=== PATIENT | female | born 1990 | race Caucasian/White ===

== ENCOUNTER 2017-07-21 02:49 | Emergency (ER) | payer OTHER ==
[~2017-07-21] VITALS: Ht 154.9 cm; Wt 106.8 kg
[2017-07-21 02:58] VITALS: Ht 154.9 cm; Wt 106.8 kg
[2017-07-21] MEDS ORDERED: IBUPROFEN 600 MG TAB PO ONE (05:00)
[2017-07-21] MEDS ORDERED: IBUP-1542 PO (05:49)
[2017-07-21] MEDS ORDERED: CEPH-443 PO (05:49)
--- NOTE | 2017-07-21 05:52 | ERD ---
ER Documentation Chief Complaint Chief Complaint R big toe swelling yesterday, pain now HPI Patient is a 26-year-old female presents ED for concerns of right big toe pain which started 2 days ago. Patient states that she noticed redness and swelling surrounding the tip of her right toe. Patient denies any trauma or falls. Patient states she has pain with ambulating. Patient denies any increase intake in salty foods, meats, alcohol use over the holiday weekend.. Patient denies any insect bites. Patient denies any fevers or chills. Patient denies any previous injuries to the affected extremity. ROS All systems reviewed and are negative except as per history of present illness. Medications Home Meds Active Scripts Cephalexin* (Keflex*) 500 Mg Capsule, 500 MG PO TID for 7 Days, CAP Prov:KATARINA PARKS PA-C 07/21/17 Ibuprofen* (Motrin*) 600 Mg Tab, 600 MG PO Q6, #20 TAB Prov:KATARINA PARKS PA-C 07/21/17 Allergies Allergies: Coded Allergies: No Known Allergies (Verified Allergy, Mild, 09/07/14) PMhx/Soc History of Surgery: No Anesthesia Reaction: No Hx Neurological Disorder: No Hx Respiratory Disorders: Yes (ASTHMA) Hx Cardiac Disorders: No Hx Psychiatric Problems: No Hx Miscellaneous Medical Probl: No Hx Alcohol Use: No Hx Substance Use: No Hx Tobacco Use: No Smoking Status: Never smoker Physical Exam Vitals Vital Signs Date Time Temp Pulse Resp B/P Pulse Ox O2 Delivery O2 Flow Rate FiO2 07/21/17 02:58 98.9 98 18 111/64 97 Physical Exam GENERAL: Well-developed, well-nourished female. Appears in no acute distress. HEAD: Normocephalic, atraumatic. EYES: Pupils are equally reactive bilaterally. EOMs grossly intact. No conjunctival erythema. NECK: Supple. No meningismus. Normal range of motion of the neck. LUNG: Clear to auscultation bilaterally. No rhonchi, wheezing, rales or coarse breath sounds. HEART: Regular rate and rhythm. No murmurs, rubs or gallops. EXTREMITIES: Equal pulses bilaterally. No peripheral clubbing, cyanosis or edema. No unilateral leg swelling. NEUROLOGIC: Alert and oriented. Moving all four extremities without any difficulty. Normal speech. Steady gait. SKIN: Normal color. Warm and dry. RIGHT TOE: Distal tip of the R great toe up to the ITP joint is erythematous and swollen. Normal range of motion of the right toe. Patient is able to bend her great right toe. No warmth. No fluctuance or induration noted. No swelling or erythema noted over the first MTP joint. 2+ DP pulses. Results 24 hrs Current Medications Medications (Trade) Dose Ordered Sig/Lilli Route PRN Reason Start Time Stop Time Status Last Admin Dose Admin Ibuprofen (Motrin) 600 mg ONCE ONCE PO 07/21/17 05:00 07/21/17 05:01 DC 07/21/17 04:44 Procedures/MDM ED COURSE: The patient was stable throughout ED course. I kept the patient and/or family informed of laboratory and diagnostic imaging results throughout the ED course. DIAGNOSTIC IMAGING: Read by radiologist. Patient: TALON ESCALONA : 1990 Age: 26 Sex: F MR #: [id number] DOS: 07/21/17 0433 Ordering MD: KATARINA PARKS PA-C Location: [facility] Room/Bed: PROCEDURE: Right foot. CLINICAL INDICATION: Pain. TECHNIQUE: Three views including AP, lateral and oblique views of the right foot were obtained. The images were reviewed on a PACS workstation. COMPARISON: None. FINDINGS: There is no fracture, dislocation or bone destruction. The joint spaces are within normal limits. Bone mineralization is within normal limits. There is no radiopaque foreign body or abnormal calcification. IMPRESSION: No evidence of fracture. .Randal Key MD, MD Date Time Electronically viewed and signed by .Randal Key MD, MD on 07/21/2017 06:25 .T/ CC: KATARINA PARKS PA-C MEDICAL DECISION MAKING: This is a 26-year-old female presents to the ED for concerns of right big toe pain 2 days. Patient denies any falls or trauma. Patient states she suddenly developed redness and swelling to the distal aspect of her great toe. Vital signs were reviewed. Patient was afebrile. Imaging was obtained and was negative. Patient denied any recent alcohol use, salty food intake, meat intake. At this time, patient presentation is most consistent with toe pain. Patient may have early signs of cellulitis. Patient will be given a prescription for ibuprofen and Keflex. Discussed case with my supervising physician Dr. Sarmiento agreed with the above management plan. Low suspicion for fracture, dislocation, felon, paronychia, gout, foreign body, neurovascular injury. PRESCRIPTIONS: Ibuprofen, Keflex DISCHARGE: At this time, patient is stable for discharge and outpatient management. Wound recheck is advised in 2 days. Patient advised to return sooner for any new or worsening symptoms including worsening redness, swelling, pain. RICE therapy and ROM exercises were advised to avoid stiffness. I have instructed the patient to follow-up with his/her primary care physician in 1-2 days. I have discussed with the patient the possibility of needing to see an review specialist for further workup and imaging if the pain persists. I have instructed the patient to promptly return to the ER for any new or worsening symptoms including increased pain, swelling, redness, warmth or fever. The patient and/or family expressed understanding of and agreement with this plan. All questions were answered. Home care instructions were provided. Disclaimer: Inadvertent spelling and grammatical errors are likely due to EHR/ dictation software use and do not reflect on the overall quality of patient care. Also, please note that the electronic time recorded on this note does not necessarily reflect the actual time of the patient encounter. Departure Diagnosis: Primary Impression: Toe pain Laterality: right Qualified Code: M79.674 - Pain of toe of right foot Additional Impression: Cellulitis Site of cellulitis: unspecified site Qualified Code: L03.90 - Cellulitis, unspecified cellulitis site Condition: Stable Patient Instructions: Cellulitis Additional Instructions: Recheck advised in 2 days. Return sooner for any new or worsening symptoms including spreading of redness, fevers, chills, warmth. Call your primary care doctor TOMORROW for an appointment during the next 1-2 days.See the doctor sooner or return here if your condition worsens before your appointment time. KATARINA PARKS PA-C Jul 21, 2017 05:52
--- NOTE | 2017-07-21 06:26 | RADRPT ---
PROCEDURE: Right foot. CLINICAL INDICATION: Pain. TECHNIQUE: Three views including AP, lateral and oblique views of the right foot were obtained. The images were reviewed on a PACS workstation. COMPARISON: None. FINDINGS: There is no fracture, dislocation or bone destruction. The joint spaces are within normal limits. Bone mineralization is within normal limits. There is no radiopaque foreign body or abnormal calcif ication. IMPRESSION: No evidence of fracture. .Randal Key MD, Date Time Electronically viewed and signed by .Randal Key MD, MD on 07/21/2017 06:25 .T/
== END 2017-07-21 06:04 | disposition home or self-care (01) ==
LOC: FTE 02:49
DX: L03.031 Cellulitis of right toe (principal); J45.909 Unspecified asthma, uncomplicated
CPT/HCPCS: 73630; Z7502; Z7610

== ENCOUNTER 2018-11-04 12:20 | Emergency (ER) | payer OTHER ==
[~2018-11-04] VITALS: Ht 162.6 cm; Wt 110.7 kg
[~2018-11-04 12:20] MED LIST: CEPH-443 PO; IBUP-1542 PO
[2018-11-04 12:22] VITALS: BP 120/70; PULSE 92; RESP 18; Ht 162.6 cm; Wt 110.7 kg
--- NOTE | 2018-11-04 14:05 | ERD ---
ER Documentation Chief Complaint Chief Complaint SENT BY PMD FOR EVAL , 17 WEEKS PREG , SPOTTING HPI Patient is a 28-year-old female who is G1, last muscle cycle of July 01, 2018 presenting to the emergency department with complaints of vaginal spotting on and off for the past 17 weeks. Symptoms are mild in severity. She denies any vaginal discharge, pelvic pain, fevers, chills, abdominal pain, or other symptoms at this time. She was sent here by her SALES PROGRAM COORDINATOR, Rao Carter. ROS All systems reviewed and are negative except as per history of present illness. Medications Home Meds Active Scripts Cephalexin* (Keflex*) 500 Mg Capsule, 500 MG PO QID for 5 Days, CAP Prov:YOBANI GANT PA-C 11/04/18 Cephalexin* (Keflex*) 500 Mg Capsule, 500 MG PO TID for 7 Days, CAP Prov:KATARINA PARKS PA-C 07/21/17 Ibuprofen* (Motrin*) 600 Mg Tab, 600 MG PO Q6, #20 TAB Prov:KATARINA PARKS PA-C 07/21/17 Allergies Allergies: Coded Allergies: No Known Allergies (Verified Allergy, Mild, 09/07/14) PMhx/Soc History of Surgery: No Anesthesia Reaction: No Hx Neurological Disorder: No Hx Respiratory Disorders: Yes (ASTHMA) Hx Cardiac Disorders: No Hx Psychiatric Problems: No Hx Miscellaneous Medical Probl: No Hx Alcohol Use: No Hx Substance Use: No Hx Tobacco Use: No FmHx Family History: No diabetes Physical Exam Vitals Vital Signs Date Temp Pulse Resp B/P (MAP) Pulse Ox O2 O2 Flow FiO2 Time Delivery Rate 11/04/18 98.1 92 18 120/70 98 12:22 (87) Physical Exam Const: No acute distress Head: Atraumatic Eyes: Normal Conjunctiva ENT: Normal External Ears, Nose and Mouth. Neck: Full range of motion. No meningismus. Resp: Clear to auscultation bilaterally Cardio: Regular rate and rhythm, no murmurs Abd: Soft, non tender, non distended. Normal bowel sounds. No rebound tenderness or guarding. No McBurney's point tenderness. No pelvic tenderness to palpation. Skin: No petechiae or rashes Back: No midline or flank tenderness Ext: No cyanosis, or edema Neur: Awake and alert Psych: Normal Mood and Affect Result Diagram: 11/04/18 1313 11/04/18 1313 Results 24 hrs Laboratory Tests Test 11/04/18 13:13 11/04/18 13:25 White Blood Count 7.9 10^3/ul Red Blood Count 4.45 10^6/ul Hemoglobin 12.5 g/dl Hematocrit 36.5 % Mean Corpuscular Volume 82.0 fl Mean Corpuscular Hemoglobin 28.1 pg Mean Corpuscular Hemoglobin Concent 34.2 g/dl Red Cell Distribution Width 12.9 % Platelet Count 255 10^3/UL Mean Platelet Volume 10.1 fl Immature Granulocytes % 1.000 % Neutrophils % 72.0 % Lymphocytes % 18.5 % Monocytes % 7.2 % Eosinophils % 1.0 % Basophils % 0.3 % Nucleated Red Blood Cells % 0.0 /100WBC Immature Granulocytes # 0.080 10^3/ul Neutrophils # 5.7 10^3/ul Lymphocytes # 1.5 10^3/ul Monocytes # 0.6 10^3/ul Eosinophils # 0.1 10^3/ul Basophils # 0.0 10^3/ul Nucleated Red Blood Cells # 0.0 10^3/ul Sodium Level 137 mmol/L Potassium Level 3.8 mmol/L Chloride Level 105 mmol/L Carbon Dioxide Level 21 mmol/L Anion Gap 11 Blood Urea Nitrogen 5 mg/dl Creatinine 0.42 mg/dl Est Glomerular Filtrat Rate mL/min > 60 mL/min Glucose Level 93 mg/dl Calcium Level 9.2 mg/dl Total Bilirubin 0.2 mg/dl Direct Bilirubin 0.00 mg/dl Indirect Bilirubin 0.2 mg/dl Aspartate Amino Transf (AST/SGOT) 28 IU/L Alanine Aminotransferase (ALT/SGPT) 42 IU/L Alkaline Phosphatase 72 IU/L Total Protein 7.0 g/dl Albumin 3.6 g/dl Globulin 3.40 g/dl Albumin/Globulin Ratio 1.05 Beta HCG, Quantitative 18889.0 mIU/ml Urine Color YELLOW Urine Clarity SLIGHTLY CLOUDY Urine pH 6.0 Urine Specific [place] 1.016 Urine Ketones 1+ mg/dL Urine Nitrite NEGATIVE mg/dL Urine Bilirubin NEGATIVE mg/dL Urine Urobilinogen NEGATIVE mg/dL Urine Leukocyte Esterase 3+ Pablo/ul Urine Microscopic RBC 5 /HPF Urine Microscopic WBC 36 /HPF Urine Squamous Epithelial Cells FEW /HPF Urine Bacteria FEW /HPF Urine Mucus FEW /HPF Urine Hemoglobin 1+ mg/dL Urine Glucose NEGATIVE mg/dL Urine Total Protein NEGATIVE mg/dl [place] [id number] Radiology Main Line: [phone] DIAGNOSTIC IMAGING REPORT Patient: TALON ESCALONA : 1990 Age: 28 Sex: F MR #: [id number] DOS: 11/04/18 0000 Ordering MD: YOBANI GANT PA-C Location: [facility] Room/Bed: PROCEDURE: US OB. CLINICAL INDICATION: age and weight. TECHNIQUE: Multiple sonographic images of the pelvis were obtained. Transabdominal imaging only was performed. The images were reviewed on a PACS workstation. COMPARISON: No prior studies are available for comparison. FINDINGS: There is a single live intrauterine gestation. Cardiac activity is present with 148 beats per minute. There is a variable presentation. Measurements were made in order to determine age. The results are as follows: BPD = 3.8 cm HC = 14.0 cm. AC = 12.9 cm. FL = 2.1 cm. Estimated gestational age of approximately 17 weeks 3 days. The estimated date of delivery is 04/11/2019. The EFW = 193 g. Growth percentile 15% The placenta is posterior. There is no evidence for an abruption or placenta previa. No anomalies are identified. There is a normal amount of amniotic fluid . IMPRESSION: 1. Single live intrauterine gestation of approximately 17 weeks 3 days. 2. Estimated date of delivery 04/11/2019 . 3. Estimated weight 193 g. RPTAT: GG .Edgar Manzano MD, MD Date Time Electronically viewed and signed by .Edgar Manzano MD, on 11/04/2018 14:11 .L/ CC: YOBANI GANT PA-C [id number] Procedures/MDM 28-year-old female presented to the emergency department complaining of vaginal spotting. Patient is reportedly 17 weeks . Pelvic ultrasound shows an intrauterine gestation with positive heart tones and no evidence of placenta previa or placenta abruptio. . Patient will be discharged home with instructions on the importance of a 2 day follow-up. Signs and symptoms do not suggest endometritis or septic . Patient return sooner for fevers, vomiting, shortness of breath or chest pain. No evidence of life-threatening pathology at time of discharge. Pt/family in agreement with discharge plan/diagnosis. Pt/family advised to return immediately with any new or worsening symptoms. Follow-up with primary care physician within the next 1-2 days. Signs and symptoms do not suggest appendicitis, acute abdomen but patient should recheck as directed. Departure Diagnosis: Primary Impression: Vaginal bleeding in patient at less than 20 weeks gestation Condition: Fair Patient Instructions: Vaginal Bleed in YOBANI GANT PA-C Nov 04, 2018 14:05
[2018-11-04] MEDS ORDERED: CEPH-443 PO (14:44)
== END 2018-11-04 14:58 | disposition home or self-care (01) ==
LOC: FTE 12:20
DX: O20.9 Hemorrhage in early pregnancy, unspecified (principal); O99.52 Diseases of the respiratory system complicating childbirth; Z3A.17 17 weeks gestation of pregnancy
CPT/HCPCS: 36415; 76805; 80053; 81001; 84702; 85025; Z7502